=== PATIENT | female | born 1940 | race Asian ===

== ENCOUNTER 2016-11-16 16:36 | Inpatient (IN) | payer MEDICARE, OTHER ==
[~2016-11-16] VITALS: Ht 271.8 cm; Wt 75.3 kg
[~2016-11-16 16:36] MED LIST: ACET-2708 PO; ALBU18HF2 IH; BENA20TA77 GT; BUDE6HFA IH; DOCU250C75 GT; IPRA4AER IH; LEVO500T15 PO; METH10TA7 PO; NICO1PAT15 TD; NICO1PAT6 TD; OCD PO; SIMV40TA5 PO; [UNRECOGNIZED DRUG - CODE] PO
[2016-11-16] MEDS ORDERED: METHYLPREDNISOLONE SOD SUCC 125 MG/2 ML VIAL IV STA (17:54)
[2016-11-16] MEDS ORDERED: ALBUTEROL (0.083%) 2.5MG/3ML NEB HHN STA (17:54)
[2016-11-16] MEDS ORDERED: IPRATROPIUM BROMIDE (0.02%) 0.5MG/2.5ML NEB HHN STA (17:54)
[2016-11-16] MEDS ORDERED: MAGNESIUM 2 G PREMIX 50 ML IV ONE (18:00)
[2016-11-16 18:34] LABS: DIFFERENTIAL COMMENT 1; HEMATOCRIT. 38.9 % (36.0-48.0); HEMOGLOBIN. 12.9 g/dL (12.0-16.0); MEAN CORPUSCULAR HEMOGLOBIN 29.8 pg (28.0-32.0); MEAN CORPUSCULAR HGB CONC 33.1 g/dL (31.0-37.0); MEAN CORPUSCULAR VOLUME 89.9 fL (81.0-99.0); MEAN PLATELET VOLUME 9.1 fl (7.4-10.4); PLATELET 197 x1000/uL (130-400); RED BLOOD CELL COUNT 4.32 mill/uL (4.2-5.4); RED CELL DISTRIBUTION WIDTH 14.2 % (11.6-14.6); WHITE BLOOD COUNT 5.5 x1000/uL (4.5-11.0)
[2016-11-16 18:49] LABS: PLATELET ESTIMATE NORMAL
[2016-11-16 18:52] LABS: ALANINE AMINOTRANSFERASE 13 IU/L (13-61); ALBUMIN 3.4 g/dL (3.4-5.0); ANION GAP 10; CALCIUM 8.5 mg/dL (8.5-10.1); CARBON DIOXIDE 30 mEq/L (21-32); CHLORIDE 106 mEq/L (98-107); INDEX HEMOLYSI 1 (1-3); INDEX ICTERIC 1 (1-4); INDEX LIPEMIC 1 (1-3); NT PRO B-TYPE NATRIURETIC PEP 98 pg/mL (5-125); TROPONIN I < 0.02 ng/mL (0.00-0.04); UREA NITROGEN BLOOD 9 mg/dL (7-21); eGFR 54 mL/min (>60)
[2016-11-16 21:15] VITALS: BP 145/88
[2016-11-16 21:30] VITALS: BP 145/89
[2016-11-16] MEDS ORDERED: ZOLPIDEM TARTRATE 5MG TABLET PO PRN (23:45)
[2016-11-16] MEDS ORDERED: DOCUSATE SODIUM 250MG CAPSULE PO PRN (23:45)
[2016-11-17] VITALS (7 sets, daily range): BP systolic 93–139; BP diastolic 56–89
[2016-11-17] MEDS ORDERED: NAPR375T5 MT (00:31)
[2016-11-17] MEDS ORDERED: ASPI-1035 PO (00:31)
[2016-11-17] MEDS ORDERED: AMLO10TA80 PO (00:32)
[2016-11-17] MEDS: AMLODIPINE 5MG TABLET PO SCH ×2 (00:47→08:38)
[2016-11-17] MEDS: METHYLPREDNISOLONE SOD SUCC 125 MG/2 ML VIAL IV SCH ×4 (00:48→23:40)
[2016-11-17] MEDS: LISINOPRIL 20MG TABLET PO SCH ×2 (00:48→08:38)
[2016-11-17] MEDS: IPRATROPIUM/ALBUTEROL 0.5-3(2.5)MG/3ML NEB HHN SCH ×5 (04:28→20:33)
[2016-11-17 06:23] LABS: CALCIUM 8.9 mg/dL (8.5-10.1)
[2016-11-17 06:32] LABS: HEMATOCRIT 39.7 % (36.0-48.0); HEMOGLOBIN 12.8 g/dL (12.0-16.0); MEAN CORPUSCULAR HEMOGLOBIN 29.7 pg (28.0-32.0); MEAN CORPUSCULAR HGB CONC 32.3 g/dL (31.0-37.0); MEAN CORPUSCULAR VOLUME 92.2 fL (81.0-99.0); PLATELET 189 x1000/uL (130-400); RED BLOOD CELL COUNT 4.31 mill/uL (4.2-5.4); RED CELL DISTRIBUTION WIDTH 13.9 % (11.6-14.6); WHITE BLOOD COUNT 5.3 x1000/uL (4.5-11.0)
[2016-11-17 07:41] LABS: BG BASE EXCESS -1.2 mmol/L (-2.0-2.0); BG CARBOXYHEMOGLOBIN 0.4 % (0.5-1.5); BG DEOXYHEMOGLOBIN 2.9 % (0.0-5.0); BG FRACTION INSPIRED OXYGEN 21; BG HCO3 ACT 23.4 mmol/L (22.0-26.0); BG METHEMOGLOBIN 0.3 % (0.0-1.5); BG OXYGEN SATURATION 97.1 % (92.0-98.5); BG OXYHEMOGLOBIN 96.4 % (94.0-97.0); BG PCO2 38.6 mmHg (35.0-45.0); BG PO2 93.8 mmHg (75.0-100.0); BG SAMPLE SITE LEFT RADIAL; BG TOTAL HEMOGLOBIN 13.8 g/dL (12.0-18.0); BG VENT MODE ROOM AIR
[2016-11-17] MEDS: METHIMAZOLE 10MG TABLET PO SCH (08:38)
[2016-11-17] MEDS: ASPIRIN 81MG TABLET PO SCH (08:38)
[2016-11-17 10:38] LABS: T4 FREE 0.16 ng/dL (0.76-1.46)
[2016-11-17] MEDS ORDERED: LIDOCAINE HCL/PF 1% 2ML VIAL ONE (10:42)
[2016-11-17] MEDS: LEVOFLOXACIN 500MG TABLET PO SCH (10:45)
[2016-11-18] MEDS: IPRATROPIUM/ALBUTEROL 0.5-3(2.5)MG/3ML NEB HHN SCH ×6 (00:19→21:15)
[2016-11-18 04:00] VITALS: BP 112/66
[2016-11-18 06:49] LABS: HEMATOCRIT. 41.3 % (36.0-48.0); HEMOGLOBIN. 13.2 g/dL (12.0-16.0); MEAN CORPUSCULAR HGB CONC 32.1 g/dL (31.0-37.0); MEAN CORPUSCULAR VOLUME 90.5 fL (81.0-99.0); MEAN PLATELET VOLUME 9.3 fl (7.4-10.4); PLATELET 236 x1000/uL (130-400); RED BLOOD CELL COUNT 4.56 mill/uL (4.2-5.4); RED CELL DISTRIBUTION WIDTH 13.8 % (11.6-14.6); WHITE BLOOD COUNT 22.8 x1000/uL (4.5-11.0)
[2016-11-18 07:04] LABS: ANION GAP 13; CALCIUM 8.8 mg/dL (8.5-10.1); CARBON DIOXIDE 25 mEq/L (21-32); CHLORIDE 104 mEq/L (98-107); INDEX HEMOLYSI 1 (1-3); INDEX ICTERIC 1 (1-4); INDEX LIPEMIC 1 (1-3); UREA NITROGEN BLOOD 21 mg/dL (7-21); eGFR 54 mL/min (>60)
[2016-11-18 07:06] LABS: TROPONIN I < 0.02 ng/mL (0.00-0.04)
[2016-11-18 07:58] LABS: DIFFERENTIAL COMMENT 1
[2016-11-18 08:00] VITALS: BP 149/83
[2016-11-18] MEDS: ASPIRIN 81MG TABLET PO SCH (08:40)
[2016-11-18] MEDS: LISINOPRIL 20MG TABLET PO SCH (08:40)
[2016-11-18] MEDS: AMLODIPINE 5MG TABLET PO SCH (08:40)
[2016-11-18] MEDS: METHYLPREDNISOLONE SOD SUCC 125 MG/2 ML VIAL IV SCH (08:40)
[2016-11-18] MEDS: METHIMAZOLE 10MG TABLET PO SCH (08:40)
[2016-11-18] MEDS: LEVOFLOXACIN 500MG TABLET PO SCH (10:39)
[2016-11-18 13:25] VITALS: BP 99/61
[2016-11-18] MEDS: METHYLPREDNISOLONE SOD SUCC 40 MG/ML VIAL IV SCH ×2 (13:26→21:05)
[2016-11-18 14:56] LABS: PLATELET ESTIMATE NORMAL
[2016-11-18 15:56] LABS: CLARITY URINE CLEAR (CLEAR); COLOR URINE YELLOW (YELLOW); GLUCOSE URINE TRACE (NEGATIVE); KETONES URINE NEGATIVE (NEGATIVE); LEUKOCYTE ESTERASE URINE NEGATIVE (NEGATIVE); NITRITE URINE NEGATIVE (NEGATIVE); OCCULT BLOOD URINE NEGATIVE (NEGATIVE); PROTEIN URINE NEGATIVE (NEGATIVE); SPECIFIC GRAVITY URINE 1.009 (1.005-1.030); UROBILINOGEN URINE 0.2 E.U./dL (0.2-1.0)
[2016-11-18 16:00] VITALS: BP 121/71
[2016-11-18 16:21] LABS: BACTERIA URINE TRACE; RBC URINE 0-2 /hpf (0-2); SQUAMOUS EPITHELIAL CELL URINE RARE /lpf (RARE/1+); WBC URINE NONE SEEN /hpf (0-2)
[2016-11-18 20:00] VITALS: BP 120/86
[2016-11-18] MEDS: ACETAMINOPHEN 325MG TABLET PO PRN (20:31)
[2016-11-19] VITALS: BP 96/44
[2016-11-19] MEDS: IPRATROPIUM/ALBUTEROL 0.5-3(2.5)MG/3ML NEB HHN SCH ×6 (00:29→20:56)
[2016-11-19] MEDS: ACETAMINOPHEN 325MG TABLET PO PRN ×2 (03:03→17:29)
[2016-11-19 04:00] VITALS: BP 122/76
[2016-11-19] MEDS: METHYLPREDNISOLONE SOD SUCC 40 MG/ML VIAL IV SCH ×2 (05:20→17:31)
[2016-11-19 07:18] LABS: HEMATOCRIT. 41.2 % (36.0-48.0); HEMOGLOBIN. 13.3 g/dL (12.0-16.0); MEAN CORPUSCULAR HEMOGLOBIN 29.2 pg (28.0-32.0); MEAN CORPUSCULAR HGB CONC 32.3 g/dL (31.0-37.0); MEAN CORPUSCULAR VOLUME 90.3 fL (81.0-99.0); MEAN PLATELET VOLUME 9.4 fl (7.4-10.4); PLATELET 236 x1000/uL (130-400); RED BLOOD CELL COUNT 4.56 mill/uL (4.2-5.4); RED CELL DISTRIBUTION WIDTH 14.1 % (11.6-14.6); WHITE BLOOD COUNT 21.3 x1000/uL (4.5-11.0)
[2016-11-19 07:52] LABS: DIFFERENTIAL COMMENT 1
[2016-11-19 08:00] VITALS: BP 120/75
[2016-11-19] MEDS: AMLODIPINE 5MG TABLET PO SCH (09:35)
[2016-11-19] MEDS: ASPIRIN 81MG TABLET PO SCH (09:35)
[2016-11-19] MEDS: LISINOPRIL 20MG TABLET PO SCH (09:35)
[2016-11-19] MEDS: METHIMAZOLE 10MG TABLET PO SCH (09:35)
[2016-11-19 10:13] LABS: PLATELET ESTIMATE NORMAL
[2016-11-19 12:00] VITALS: BP 122/73
[2016-11-19] MEDS: LEVOFLOXACIN 500MG TABLET PO SCH (12:00)
[2016-11-19 16:00] VITALS: BP 130/80
[2016-11-19 20:00] VITALS: BP 115/67
[2016-11-20] VITALS: BP 102/57
[2016-11-20] MEDS: IPRATROPIUM/ALBUTEROL 0.5-3(2.5)MG/3ML NEB HHN SCH ×5 (00:53→15:40)
[2016-11-20 04:00] VITALS: BP 128/72
[2016-11-20] MEDS: METHYLPREDNISOLONE SOD SUCC 40 MG/ML VIAL IV SCH (05:28)
[2016-11-20 06:29] LABS: HEMATOCRIT. 41.2 % (36.0-48.0); HEMOGLOBIN. 13.5 g/dL (12.0-16.0); MEAN CORPUSCULAR HEMOGLOBIN 29.5 pg (28.0-32.0); MEAN CORPUSCULAR HGB CONC 32.7 g/dL (31.0-37.0); MEAN CORPUSCULAR VOLUME 90.1 fL (81.0-99.0); MEAN PLATELET VOLUME 9.4 fl (7.4-10.4); PLATELET 275 x1000/uL (130-400); RED BLOOD CELL COUNT 4.57 mill/uL (4.2-5.4); RED CELL DISTRIBUTION WIDTH 14.5 % (11.6-14.6); WHITE BLOOD COUNT 20.3 x1000/uL (4.5-11.0)
[2016-11-20 07:16] LABS: DIFFERENTIAL COMMENT 1
[2016-11-20 07:19] LABS: CALCIUM 8.6 mg/dL (8.5-10.1)
[2016-11-20 08:00] VITALS: BP 134/76
[2016-11-20] MEDS: ACETAMINOPHEN 325MG TABLET PO PRN (09:08)
[2016-11-20] MEDS: ASPIRIN 81MG TABLET PO SCH (09:08)
[2016-11-20] MEDS: AMLODIPINE 5MG TABLET PO SCH (09:09)
[2016-11-20] MEDS: LISINOPRIL 20MG TABLET PO SCH (09:09)
[2016-11-20] MEDS ORDERED: PREDNISONE 20MG TABLET PO SCH (09:15)
[2016-11-20] MEDS: LEVOFLOXACIN 500MG TABLET PO SCH (10:05)
[2016-11-20 11:15] LABS: PLATELET ESTIMATE NORMAL
[2016-11-20 12:00] VITALS: BP 118/71
[2016-11-20 15:40] VITALS: BP 132/79
== END 2016-11-20 16:35 | disposition home or self-care (01) | DRG 189 ==
LOC: ER 20:34 → 5WST 20:55
PROVIDERS: ADMIT Internal Medicine; ATTEND Internal Medicine
DX: J96.20 Acute and chronic respiratory failure, unspecified whether with hypoxia or hypercapnia (principal); J44.1 Chronic obstructive pulmonary disease with (acute) exacerbation; I13.0 Hypertensive heart and chronic kidney disease with heart failure and stage 1 through stage 4 chronic kidney disease, or unspecified chronic kidney disease; I73.9 Peripheral vascular disease, unspecified; M81.0 Age-related osteoporosis without current pathological fracture; M17.9 Osteoarthritis of knee, unspecified; I25.10 Atherosclerotic heart disease of native coronary artery without angina pectoris; E05.90 Thyrotoxicosis, unspecified without thyrotoxic crisis or storm; E03.9 Hypothyroidism, unspecified; E78.5 Hyperlipidemia, unspecified; D72.829 Elevated white blood cell count, unspecified; F41.9 Anxiety disorder, unspecified; I35.0 Nonrheumatic aortic (valve) stenosis; I48.91 Unspecified atrial fibrillation; N18.9 Chronic kidney disease, unspecified; T38.0X5A Adverse effect of glucocorticoids and synthetic analogues, initial encounter; Z79.82 Long term (current) use of aspirin; Z79.899 Other long term (current) drug therapy; Z87.891 Personal history of nicotine dependence
CPT/HCPCS: 36415; 36600; 71010; 80048; 80053; 81001; 82375; 82805; 83605; 83880; 84439; 84443; 84484; 85025; 85027; 93005; 93306; 93923; 94640; 94664; 96365; 96366; 96375; 99285; J2920; J2930; J3475; J3490; J7512; J7611; J7620

== ENCOUNTER 2019-06-23 16:44 | Inpatient (IN) | payer MEDICARE, OTHER ==
[~2019-06-23] VITALS: Ht 154.9 cm; Wt 72.6 kg
[~2019-06-23 16:44] MED LIST changes: -ALBU18HF2 IH; +ALBU18HF2 INH; +ASPI-1393 PO; -BENA20TA77 GT; +BENA20TA77 PO; +BENZ-16 PO; -BUDE6HFA IH; -DOCU250C75 GT; +IPRA3AMP9 HHN; -IPRA4AER IH; -LEVO500T15 PO; +LIP40 PO; -METH10TA7 PO; -NICO1PAT15 TD; -NICO1PAT6 TD; -SIMV40TA5 PO; +TUSSL PO; -[UNRECOGNIZED DRUG - CODE] PO
[2019-06-23] MEDS ORDERED: ALBUTEROL (0.083%) 2.5MG/3ML NEB HHN STA (17:50)
[2019-06-23] MEDS ORDERED: IPRATROPIUM BROMIDE (0.02%) 0.5MG/2.5ML NEB HHN STA (17:50)
[2019-06-23] MEDS ORDERED: METHYLPREDNISOLONE SOD SUCC 125 MG/2 ML VIAL IV STA (17:50)
[2019-06-23 18:15] LABS: BASOPHILS % 0.3 % (0.0-2.0); EOSINOPHILS % 0.5 % (0.0-5.0); HEMATOCRIT. 39.7 % (36.0-48.0); HEMOGLOBIN. 13.2 g/dL (12.0-16.0); LYMPHOCYTES % 11.9 % (20.0-50.0); MEAN CORPUSCULAR HEMOGLOBIN 30.3 pg (28.0-32.0); MEAN CORPUSCULAR VOLUME 90.9 fL (81.0-99.0); MEAN PLATELET VOLUME 9.5 fl (7.4-10.4); MONOCYTES % 10.5 % (2.0-8.0); NEUTROPHILS % 76.8 % (40.0-76.0); PLATELET 183 x1000/uL (130-400); RED BLOOD CELL COUNT 4.36 mill/uL (4.2-5.4); RED CELL DISTRIBUTION WIDTH 13.7 % (11.6-14.6)
[2019-06-23 18:17] LABS: CHLORIDE 108 mEq/L (98-107)
[2019-06-23 20:40] VITALS: BP 108/63
[2019-06-23 21:44] VITALS: BP 108/63
[2019-06-23] MEDS ORDERED: NON FORMULARY PATIENT HOME MED XX PRN (22:45)
[2019-06-23] MEDS: ENOXAPARIN 40MG/0.4ML SYR SUBCUT SCH ×2 (23:00→23:25)
[2019-06-23] MEDS: GUAIFENESIN-DM 200MG-20MG/10ML UDC PO PRN (23:24)
[2019-06-23] MEDS: METHYLPREDNISOLONE SOD SUCC 40 MG/ML VIAL IV SCH (23:24)
[2019-06-23] MEDS ORDERED: BENZ-16 PO (23:59)
[2019-06-23] MEDS ORDERED: AMLO5TAB4 PO (23:59)
[2019-06-23] MEDS ORDERED: ERGO2000 PO (23:59)
[2019-06-23] MEDS ORDERED: HYDR-3735 PO (23:59)
[2019-06-24] VITALS: BP 107/56
[2019-06-24] MEDS ORDERED: ALBU90AE IH (00:01)
[2019-06-24 04:00] VITALS: BP 132/72
[2019-06-24] MEDS: IPRATROPIUM/ALBUTEROL 0.5-3(2.5)MG/3ML NEB HHN PRN (04:35)
[2019-06-24] MEDS: GUAIFENESIN-DM 200MG-20MG/10ML UDC PO PRN (06:14)
[2019-06-24] MEDS: METHYLPREDNISOLONE SOD SUCC 40 MG/ML VIAL IV SCH ×4 (06:15→23:35)
[2019-06-24 07:32] LABS: HEMATOCRIT. 42.6 % (36.0-48.0); MEAN CORPUSCULAR HEMOGLOBIN 30.1 pg (28.0-32.0); MEAN CORPUSCULAR VOLUME 91.7 fL (81.0-99.0); MEAN PLATELET VOLUME 9.6 fl (7.4-10.4); PLATELET 211 x1000/uL (130-400); RED BLOOD CELL COUNT 4.65 mill/uL (4.2-5.4); RED CELL DISTRIBUTION WIDTH 13.7 % (11.6-14.6)
[2019-06-24 07:35] LABS: CHLORIDE 107 mEq/L (98-107)
[2019-06-24 08:00] VITALS: BP 144/80
[2019-06-24] MEDS: IPRATROPIUM/ALBUTEROL 0.5-3(2.5)MG/3ML NEB HHN SCH ×3 (08:35→20:28)
[2019-06-24] MEDS: PANTOPRAZOLE 40MG DR TABLET PO SCH (09:03)
[2019-06-24] MEDS: AMLODIPINE 5MG TABLET PO SCH (10:53)
[2019-06-24 12:00] VITALS: BP 177/81
[2019-06-24 12:55] LABS: PLATELET ESTIMATE NORMAL
[2019-06-24] MEDS: CLONIDINE 0.1MG TABLET PO PRN (14:48)
[2019-06-24] MEDS: BENZONATATE 100MG CAPSULE PO PRN (14:48)
[2019-06-24 16:00] VITALS: BP 125/63
[2019-06-24] MEDS: ACETAMINOPHEN 325MG TABLET PO PRN (17:07)
[2019-06-24 20:00] VITALS: BP 97/49
[2019-06-24] MEDS ORDERED: ATORVASTATIN CALCIUM 40MG TABLET PO SCH (21:00)
[2019-06-24] MEDS: ATORVASTATIN CALCIUM 40MG TABLET PO SCH (21:35)
[2019-06-24] MEDS: HYDROXYZINE 25MG TABLET PO PRN (23:35)
[2019-06-25] VITALS: BP 101/62
[2019-06-25] MEDS: IPRATROPIUM/ALBUTEROL 0.5-3(2.5)MG/3ML NEB HHN PRN ×2 (00:53→04:56)
[2019-06-25 04:00] VITALS: BP 110/60
[2019-06-25] MEDS: METHYLPREDNISOLONE SOD SUCC 40 MG/ML VIAL IV SCH (05:13)
[2019-06-25 05:45] LABS: INR 0.9; PARTIAL THROMBOPLASTIN TIME 25.5 sec (23.4-31.0); PROTHROMBIN TIME 9.5 sec (9.6-11.0)
[2019-06-25] MEDS: IPRATROPIUM/ALBUTEROL 0.5-3(2.5)MG/3ML NEB HHN SCH ×3 (07:46→21:11)
[2019-06-25 08:00] VITALS: BP 102/62
[2019-06-25] MEDS: AMLODIPINE 5MG TABLET PO SCH (09:00)
[2019-06-25] MEDS: PANTOPRAZOLE 40MG DR TABLET PO SCH (09:09)
[2019-06-25] MEDS: BENZONATATE 100MG CAPSULE PO PRN ×3 (09:09→16:40)
[2019-06-25 12:00] VITALS: BP 126/67
[2019-06-25] MEDS ORDERED: AZITHROMYCIN 500 MG TABLET PO NR (13:00)
[2019-06-25 16:00] VITALS: BP 148/71
[2019-06-25] MEDS: PREDNISONE 20MG TABLET PO SCH (16:40)
[2019-06-25 20:00] VITALS: BP 140/80
[2019-06-25] MEDS: ATORVASTATIN CALCIUM 40MG TABLET PO SCH (21:27)
[2019-06-25] MEDS: HYDROXYZINE 25MG TABLET PO PRN (21:49)
[2019-06-26] VITALS: BP 129/78
[2019-06-26 03:41] LABS: CLARITY URINE CLEAR (CLEAR); COLOR URINE YELLOW (YELLOW); KETONES URINE NEGATIVE (NEGATIVE); LEUKOCYTE ESTERASE URINE NEGATIVE (NEGATIVE); NITRITE URINE NEGATIVE (NEGATIVE); OCCULT BLOOD URINE NEGATIVE (NEGATIVE); PH URINE 5.5 (4.5-8.0); PROTEIN URINE NEGATIVE (NEGATIVE); SPECIFIC GRAVITY URINE 1.009 (1.005-1.030); UROBILINOGEN URINE 0.2 E.U./dL (0.2-1.0)
[2019-06-26 04:00] VITALS: BP 134/79
[2019-06-26 06:10] LABS: HEMATOCRIT. 41.6 % (36.0-48.0); HEMOGLOBIN. 13.4 g/dL (12.0-16.0); MEAN CORPUSCULAR HEMOGLOBIN 29.6 pg (28.0-32.0); MEAN CORPUSCULAR VOLUME 91.7 fL (81.0-99.0); MEAN PLATELET VOLUME 10.2 fl (7.4-10.4); PLATELET 223 x1000/uL (130-400); RED BLOOD CELL COUNT 4.54 mill/uL (4.2-5.4)
[2019-06-26 08:00] VITALS: BP 160/77
[2019-06-26] MEDS: AMLODIPINE 5MG TABLET PO SCH (09:01)
[2019-06-26] MEDS: FAMOTIDINE 20MG TABLET PO SCH (09:01)
[2019-06-26] MEDS: PREDNISONE 20MG TABLET PO SCH (09:01)
[2019-06-26] MEDS: BENZONATATE 100MG CAPSULE PO PRN (09:01)
[2019-06-26] MEDS: AZITHROMYCIN 250 MG TABLET PO SCH (09:02)
[2019-06-26] MEDS: IPRATROPIUM/ALBUTEROL 0.5-3(2.5)MG/3ML NEB HHN SCH ×3 (09:32→20:38)
[2019-06-26 09:43] LABS: T4 FREE 1.18 ng/dL (0.76-1.46)
[2019-06-26 10:00] LABS: PLATELET ESTIMATE NORMAL
[2019-06-26 11:42] LABS: BG BASE EXCESS 2.6 mmol/L (-2.0-2.0); BG CARBOXYHEMOGLOBIN 0.7 % (0.5-1.5); BG DEOXYHEMOGLOBIN 7.7 % (0.0-5.0); BG FRACTION INSPIRED OXYGEN 21; BG HCO3 ACT 27.9 mmol/L (22.0-26.0); BG METHEMOGLOBIN 0.3 % (0.0-1.5); BG OXYGEN SATURATION 92.2 % (92.0-98.5); BG OXYHEMOGLOBIN 91.3 % (94.0-97.0); BG PCO2 45.3 mmHg (35.0-45.0); BG PH 7.407 (7.350-7.450); BG SAMPLE SITE LEFT RADIAL; BG TOTAL HEMOGLOBIN 13.9 g/dL (12.0-18.0); BG VENT MODE ROOM AIR
[2019-06-26] MEDS ORDERED: LIDOCAINE HCL/PF 1% 2ML VIAL ONE (11:43)
[2019-06-26 12:00] VITALS: BP 126/70
[2019-06-26] MEDS: BENZONATATE 100MG CAPSULE PO SCH ×2 (13:43→21:01)
[2019-06-26 16:00] VITALS: BP 128/68
[2019-06-26] MEDS: METHIMAZOLE 5MG TABLET PO SCH (16:25)
[2019-06-26 20:00] VITALS: BP 147/78
[2019-06-26] MEDS: FLUTICASONE PROPIONATE 50MCG/SPRAY BOTTLE BOTHNSTRLS SCH (21:00)
[2019-06-26] MEDS: ATORVASTATIN CALCIUM 40MG TABLET PO SCH (21:00)
[2019-06-27] VITALS (7 sets, daily range): BP systolic 110–183; BP diastolic 69–97
[2019-06-27] MEDS: IPRATROPIUM/ALBUTEROL 0.5-3(2.5)MG/3ML NEB HHN SCH ×3 (02:59→14:48)
[2019-06-27] MEDS: BENZONATATE 100MG CAPSULE PO SCH ×2 (06:15→15:48)
[2019-06-27 07:45] LABS: HEMATOCRIT. 39.9 % (36.0-48.0); MEAN CORPUSCULAR HEMOGLOBIN 29.6 pg (28.0-32.0); MEAN CORPUSCULAR VOLUME 91.2 fL (81.0-99.0); MEAN PLATELET VOLUME 9.8 fl (7.4-10.4); PLATELET 210 x1000/uL (130-400); RED BLOOD CELL COUNT 4.37 mill/uL (4.2-5.4); RED CELL DISTRIBUTION WIDTH 13.8 % (11.6-14.6)
[2019-06-27 08:04] LABS: CHLORIDE 106 mEq/L (98-107)
[2019-06-27] MEDS: ACETAMINOPHEN 325MG TABLET PO PRN ×2 (08:22→15:55)
[2019-06-27] MEDS: AMLODIPINE 5MG TABLET PO SCH (08:23)
[2019-06-27] MEDS: AZITHROMYCIN 250 MG TABLET PO SCH (08:23)
[2019-06-27] MEDS: METHIMAZOLE 5MG TABLET PO SCH (08:23)
[2019-06-27] MEDS: FLUTICASONE PROPIONATE 50MCG/SPRAY BOTTLE BOTHNSTRLS SCH (08:55)
[2019-06-27] MEDS: FAMOTIDINE 20MG TABLET PO SCH (08:55)
[2019-06-27] MEDS ORDERED: PREDNISONE 20MG TABLET PO SCH (09:00)
[2019-06-27] MEDS: CLONIDINE 0.1MG TABLET PO PRN (12:35)
[2019-06-27 14:35] LABS: PLATELET ESTIMATE NORMAL
[2019-06-27] MEDS: HYDROXYZINE 25MG TABLET PO PRN (17:23)
== END 2019-06-27 18:46 | disposition home or self-care (01) | DRG 189 ==
LOC: ER 16:44 → EDBEDREQ 19:46 → EDBEDREQTM 19:46 → 7WST 19:47 → ENRESERV 19:53
PROVIDERS: ADMIT Internal Medicine; ATTEND Internal Medicine
DX: J96.20 Acute and chronic respiratory failure, unspecified whether with hypoxia or hypercapnia (principal); I50.32 Chronic diastolic (congestive) heart failure; J06.9 Acute upper respiratory infection, unspecified; I73.9 Peripheral vascular disease, unspecified; E78.5 Hyperlipidemia, unspecified; F17.200 Nicotine dependence, unspecified, uncomplicated; I48.91 Unspecified atrial fibrillation; M81.0 Age-related osteoporosis without current pathological fracture; R04.0 Epistaxis; E05.90 Thyrotoxicosis, unspecified without thyrotoxic crisis or storm; G89.29 Other chronic pain; I11.0 Hypertensive heart disease with heart failure; J43.9 Emphysema, unspecified; M54.5 Low back pain; M17.10 Unilateral primary osteoarthritis, unspecified knee; T38.0X5A Adverse effect of glucocorticoids and synthetic analogues, initial encounter; Z82.49 Family history of ischemic heart disease and other diseases of the circulatory system; Z79.82 Long term (current) use of aspirin; Z79.899 Other long term (current) drug therapy; Z91.011 Allergy to milk products
CPT/HCPCS: 36415; 36600; 71045; 80048; 80061; 81003; 82375; 82805; 83036; 83880; 84439; 84443; 84484; 93005; 93306; 93923; 94640; 96374; 97162; 99291; J1650; J2920; J2930; J3490; J7512; J7611; J7620

== ENCOUNTER 2019-06-29 08:00 | Emergency (ER) | payer MEDICARE, OTHER ==
[~2019-06-29] VITALS: Ht 154.9 cm; Wt 74.0 kg
[~2019-06-29 08:00] MED LIST changes: -ALBU18HF2 INH; +ALBU90AE IH; +AMLO5TAB4 PO; -ASPI-1393 PO; +ERGO2000 PO; +HYDR-3735 PO; -OCD PO; -TUSSL PO
[2019-06-29 10:36] VITALS: BP 149/75
== END 2019-06-29 10:38 | disposition home or self-care (01) ==
LOC: ER 08:00
DX: R04.0 Epistaxis (principal); I11.9 Hypertensive heart disease without heart failure; J44.9 Chronic obstructive pulmonary disease, unspecified; Z79.82 Long term (current) use of aspirin; Z91.011 Allergy to milk products
CPT/HCPCS: 99283